=== PATIENT | female | born 1945 | race Caucasian/White ===

== ENCOUNTER → 2016-12-19 | Outpatient (CLI) | payer MEDICARE ==
[2016-12-19 10:19] LABS: Blood Urea Nitrogen 25 mg/dL (7-17); Non-African American GFR(MDRD) >60 (>60 ml/min/1.73 sqM)
--- NOTE | 2016-12-19 11:54 | CT ---
EXAMINATION TYPE: CT ChestAbdPelvis w con DATE OF EXAM: 12/19/2016 11:16 AM COMPARISON: CT cap December 17, 2015. Older CT and PET CT exams back to 2011. HISTORY: Chronic lymphocytic leukemia progress study. CT DLP: 1786 mGycm. Automated Exposure Control for Dose Reduction was Utilized. CONTRAST: CT scan of the thorax, abdomen and pelvis is performed with oral and with IV Contrast, patient inject ed with 100 ml mL of Omnipaque 300. FINDINGS: LUNGS: New triangular-shaped groundglass opacity posterior superior right lower lobe near axial image 26 is noted, consider focal infiltrate. No concerning parenchymal nodule or mass is present bilatera lly. There is no pleural effusion or pneumothorax seen. The tracheobronchial tree is patent. MEDIASTINUM: There are no greater than 1 cm hilar or mediastinal lymph nodes. No cardiomegaly or pe ricardial effusion is seen. Mild calcified plaque aortic arch extending into left subclavian artery is noted OTHER: No additional significant abnormality is seen. No suspicious axillary adenopathy is seen. LIVER/GB: Cholecystectomy clips are redemonstrated. PANCREAS: No significant abnormality is seen. SPLEEN: No significant abnormality is seen. ADRENALS: No significant abnormality is seen. KIDNEYS: No significant abnormality is seen. BOWEL: No significant abnormality is seen. GENITAL ORGANS: Uterus is surgically absent or markedly atrophic in appearance. LYMPH NODES: No greater than 1cm abdominal or pelvic lymph nodes are appreciated with particular atte ntion to the retroperitoneum. OSSEOUS STRUCTURES: There is metallic hardware from bilateral hip arthroplasties, this causes adjacen t streak artifact limiting evaluation of pelvic structures. This has similar appearance to prior exam . OTHER: Disc space narrowing with sclerosis and spurring as well as subchondral cystic change is redem onstrated L3-L4 level. There is additional multilevel spurring in the visualized thoracic spine. IMPRESSION: No worrisome mass or adenopathy is seen to suggest neoplastic recurrence.
== END | disposition home or self-care (01) ==
LOC: RADCTMAIN 09:29
PROVIDERS: ATTEND Internal Medicine Hematology & Oncology
DX: Z03.89 Encounter for observation for other suspected diseases and conditions ruled out (principal); C85.90 Non-Hodgkin lymphoma, unspecified, unspecified site
CPT/HCPCS: 82565; 84520; 71260; 74177; 36415; Q9967

== ENCOUNTER → 2017-02-14 | Outpatient (CLI) | payer MEDICARE ==
--- NOTE | 2017-02-15 09:27 | MM ---
Reason for exam: screening (asymptomatic). Last mammogram was performed 1 year and 4 months ago. History: Patient is postmenopausal, has history of other cancer at age 66, and has history of bilateral breast cancer. Family history of breast cancer in sister at age 40. Physical Findings: A clinical breast exam by your physician is recommended on an annual basis and results should be correlated with mammographic findings. MG Screening Mammo w CAD Bilateral CC and MLO view(s) were taken. Prior study comparison: October 02, 2015, bilateral MG screening mammo w CAD. March 26, 2014, bilateral MG screening mammo w CAD. There are scattered fibroglandular densities. Benign calcifications. There is no discrete abnormality. No significant changes when compared with prior studies. ASSESSMENT: Benign, BI-RAD 2 RECOMMENDATION: Routine screening mammogram of both breasts in 1 year.
== END | disposition home or self-care (01) ==
LOC: RADMAMWWP 16:49
PROVIDERS: ATTEND Family Medicine
DX: Z12.31 Encounter for screening mammogram for malignant neoplasm of breast (principal)

== ENCOUNTER → 2017-12-26 | Outpatient (CLI) | payer MEDICARE ==
--- NOTE | 2017-12-26 13:35 | CT ---
EXAMINATION TYPE: CT ChestAbdPelvis w con DATE OF EXAM: 12/26/2017 COMPARISON: 12/19/2016 HISTORY: Lymphoma, observe for mets CT DLP: 1823.4 mGycm CONTRAST: CT scan of the chest, abdomen and pelvis is performed with IV Contrast, patient injected with 100 mL of Isovue 300. CT Chest: LUNGS: There is increasing pleural-based ill-defined density superior segment right upper lobe latera lly measuring 1.3 cm currently and 1.1 cm previously. This finding is nonspecific and continued follo w-up is advised which could be performed in 4-6 months. The lungs are otherwise clear. No evidence fo r consolidation. No pleural effusion or CT evidence of interstitial lung disease. MEDIASTINUM: Thoracic aorta is of normal caliber. The heart is not enlarged. No evidence for media stinal mass or adenopathy. HILAR STRUCTURES: No evidence for mass. No hilar adenopathy is appreciated. OTHER: No significant abnormality. CONTRAST CT ABDOMEN AND PELVIS FINDINGS: LIVER/GB: Cholecystectomy clips are in place. No space occupying hepatic lesion. Biliary tree is of n ormal caliber. PANCREAS: No inflammation. No distinct mass. SPLEEN: No splenic enlargement. No lesion seen. ADRENALS: No nodule. No thickening. KIDNEYS/BLADDER: No hydronephrosis. No nephrolithiasis. No disctinct renal mass. BOWEL: Normal appendix. Normal bowel caliber. No inflammation. GENITAL ORGANS: No gross abnormality. LYMPH NODES: No greater than 1cm abdominal or pelvic lymph nodes are appreciated. AORTA: No significant abnormality. OSSEOUS STRUCTURES: Bilateral hip prostheses. Generative changes lumbar spine. OTHER: No significant additional abnormality is seen. IMPRESSION: 1. No evidence for adenopathy throughout the chest abdomen or pelvis. 2. Slight increase in size in the ill-defined pleural-based density superior segment right lower lobe may reflect an area of inflammatory change. Continued follow-up however is advised for 6 months.
== END | disposition home or self-care (01) ==
LOC: RADCTMAIN 11:30
PROVIDERS: ATTEND Internal Medicine Hematology & Oncology
DX: C85.98 Non-Hodgkin lymphoma, unspecified, lymph nodes of multiple sites (principal); R91.8 Other nonspecific abnormal finding of lung field
CPT/HCPCS: 82565; 84520; 71260; 74177; 36415; Q9967

== ENCOUNTER → 2018-04-05 | Outpatient (CLI) | payer MEDICARE ==
--- NOTE | 2018-04-10 12:43 | MM ---
Reason for exam: screening (asymptomatic). Last mammogram was performed 1 year and 2 months ago. History: Patient is postmenopausal, has history of other cancer at age 66, and has history of bilateral breast cancer. Family history of breast cancer in sister at age 40. Physical Findings: A clinical breast exam by your physician is recommended on an annual basis and results should be correlated with mammographic findings. MG Screening Mammo w CAD Bilateral CC, MLO, and XCCL view(s) were taken. Prior study comparison: February 14, 2017, bilateral MG screening mammo w CAD. October 02, 2015, bilateral MG screening mammo w CAD. There are scattered fibroglandular densities. There are benign appearing round calcifications bilaterally. There is no discrete abnormality. ASSESSMENT: Benign, BI-RAD 2 RECOMMENDATION: Routine screening mammogram of both breasts in 1 year.
== END | disposition home or self-care (01) ==
LOC: RADMAMWWP 10:47
PROVIDERS: ATTEND Family Medicine
DX: Z12.31 Encounter for screening mammogram for malignant neoplasm of breast (principal)
CPT/HCPCS: 77067

== ENCOUNTER → 2018-12-27 | Outpatient (CLI) | payer MEDICARE ==
[2018-12-27 11:31] LABS: Blood Urea Nitrogen 25 mg/dL (7-17)
--- NOTE | 2018-12-27 15:06 | CT ---
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 TECHNIQUE: Contiguous axial scanning of the chest, abdomen, and pelvis performed with IV Contrast, pa tient injected with 100 mL of Isovue 300. Delayed images through the kidneys were obtained. Coronal/s agittal reconstructions performed. CT DLP: 1860.9 mGycm Automated exposure control for dose reduction was used. FINDINGS: CHEST: Heart normal size without pericardial effusion. Coronary vessel calcifications are present. Aorta normal caliber with bovine configuration to the aortic arch. There is a new 2.1 cm lymph node in the lower left periaortic region, axial image 43. No intrathoraci c lymphadenopathy. Evaluation of the lungs shows mild biapical pleural-parenchymal scarring and minimal emphysematous ch fredy. There is a new 1.3 cm focus of groundglass in the right infrahilar region, axial image 34. Subpleural part solid groundglass density in the right lower lobe continues to increase in size with solid component measuring 1.4 cm versus approximately 8 mm, previously. The entire density measures a pproximately 2.1 cm versus 1.5 cm, previously. ABDOMEN: Soft tissue deposit left upper quadrant anterior subcutaneous adipose layer measuring 2.4 x 1.5 cm. No focal liver lesion is similar prominence to the bile ducts status post cholecystectomy. Portal kurt ous system is patent. Adrenal glands, kidneys, spleen, and pancreas appear within normal limits. Moderate prostatic calcifications abdominal aorta and iliac arteries. No new mesenteric or retroperitoneal lymphadenopathy. Oral contrast progressed to the ascending colon. Mild to moderate stool burden. Occasional left-sided colonic diverticulosis. No pericolonic inflammatory change. PELVIS: Most of the pelvis is obscured from the bilateral total hip arthroplasty artifacts. Uterus partially visualized. Bladder incompletely distended. No evident pelvic lymphadenopathy aligned for exam limita tions. BONES: Bilateral total hip arthroplasties. Degenerative disc disease and facet arthropathy throughout the phil mbar spine. IMPRESSION: 1. A FEW CONCERNING FINDINGS: 2. SOFT TISSUE DEPOSIT LEFT UPPER QUADRANT ANTERIOR SUBCUTANEOUS TISSUES MEASURING 2.4 X 1.5 CM. LYMP BLADIMIR NOT EXCLUDED. CONSIDER TARGETED ULTRASOUND AND TISSUE SAMPLING. 3. NEW 2.1 CM LYMPH NODE LOWER LEFT PARA-AORTIC REGION WITHIN THE THORAX IS SUSPICIOUS. 4. CONTINUOUSLY ENLARGING PART SOLID GROUNDGLASS IN THE RIGHT LOWER LOBE CURRENTLY MEASURING UP TO 2. 1 CM VERSUS 1.5 CM, PREVIOUSLY. LOW-GRADE ADENOCARCINOMA AND PULMONARY LYMPHOMA ARE IN THE DIFFERENTI AL. THERE IS ALSO A NEW 1.3 CM FOCUS OF GROUNDGLASS IN THE RIGHT INFRAHILAR REGION THAT COULD REPRESE NT THE SAME PROCESS.
== END | disposition home or self-care (01) ==
LOC: RADCTMAIN 10:48
PROVIDERS: ATTEND Internal Medicine Hematology & Oncology
DX: Z03.89 Encounter for observation for other suspected diseases and conditions ruled out (principal); C85.98 Non-Hodgkin lymphoma, unspecified, lymph nodes of multiple sites; R91.8 Other nonspecific abnormal finding of lung field
CPT/HCPCS: 82565; 84520; 71260; 74177; 36415; Q9967 ×2

== ENCOUNTER → 2019-01-05 | Outpatient (CLI) | payer MEDICARE ==
--- NOTE | 2019-01-07 12:52 | PE ---
Nuclear medicine PET/CT HISTORY: Lymphoma, subsequent Patient received 10.7 mCi F-18 FDG intravenously in delayed scanning was performed from the skull bas e to the mid thighs. Localization and attenuation correction CT scan was performed. Correlation to prior chest abdomen pelvis dated 12/27/2018, prior nuclear medicine PET/CT 07/28/2012 Neck and chest: No evident cervical, supraclavicular, axillary, hilar, or mediastinal adenopathy. The soft tissue mass posterior to the aorta is noted measuring 2 cm and shows associated hypermetabolic uptake, SUV is 6.9. The groundglass opacity seen in the right lower lobe posteriorly in the subpleura l location measures approximately 14 mm, there is associated hypermetabolic uptake, SUV is 5.2. There are coronary artery calcifications present. No pleural or pericardial effusion. Asymmetry in the sub mandibular location again noted, submandibular gland on the left not identified with certainty. ABDOMEN: Subcutaneous nodules in the left upper quadrant seen on prior CT measuring 2.5 cm with SUV 5 superiorly and the left lower quadrant measuring 15 mm with SUV 3.4 are noted. Spleen is not enlarge d. No retroperitoneal adenopathy. Patient is post cholecystectomy. No liver mass. No ascites. Osseous structures are remarkable for degenerative disc changes, facet arthropathy lower lumbar spine . Postop changes are noted to the hips, streak artifact could limit evaluation. Multilevel facet arth ropathy degenerative disc changes also noted in the cervical spine. IMPRESSION: Findings consistent with metastatic disease.
== END | disposition home or self-care (01) ==
LOC: RADPETMAIN 16:23
PROVIDERS: ATTEND Internal Medicine Hematology & Oncology
DX: C85.98 Non-Hodgkin lymphoma, unspecified, lymph nodes of multiple sites (principal)
CPT/HCPCS: 78815; A9552

== ENCOUNTER 2019-01-11 08:49 | Day surgery (SDC) | payer MEDICARE ==
[2019-01-11 09:24] VITALS: RESP 16; TEMP 97.7
[2019-01-11 10:17] VITALS: BP 152/78; PULSE 69
--- NOTE | 2019-01-11 11:16 | US ---
ULTRASOUND GUIDED CORE BIOPSY SUBCUTANEOUS MASS: CLINICAL HISTORY: Abnormal PET scan with subcutaneous mass FINDINGS: The procedure was explained to the patient. The risks, complications, benefits and alternatives were discussed and any questions were answered. Informed consent was obtained. Patient was placed supin e on the ultrasound table and prepped and draped in the usual sterile fashion. Utilizing a 18-gauge core biopsy needle, two passes were made into the anterior subcutaneous mass. Patient was stable throughout the procedure. Pathology is pending. All elements of maximal barrier technique were utilized. IMPRESSION: 1. Successful ultrasound guided core biopsy anterior subcutaneous mass.
== END 2019-01-11 10:30 | disposition home or self-care (01) ==
LOC: RADPROMAIN 08:49
PROVIDERS: ATTEND Internal Medicine Hematology & Oncology
DX: C82.03 Follicular lymphoma grade I, intra-abdominal lymph nodes (principal)
CPT/HCPCS: 49180; 76942; 88305; 88341; 88342

== ENCOUNTER → 2019-05-18 | Outpatient (CLI) | payer MEDICARE ==
--- NOTE | 2019-05-19 16:01 | PE ---
EXAMINATION TYPE: PET CT fusion skull to thigh DATE OF EXAM: 05/18/2019 COMPARISON: 12/27/[address] Prior PET/CT: 01/05/2019 HISTORY: Lymphoma TECHNIQUE: Following the intravenous administration of 12.806 mCi of F-18 FDG, whole body images are performed from the skull base to the midthigh. Images are reviewed on the computer in the coronal, axial, and sagittal planes. Reconstructed rotating images are created on independent workstation and reviewed on the computer. A localization and attenuation correction CT is performed in conjunction with the PET scan. DLP: 440.44 mGycm SCAN: Subsequent Blood glucose: 111 mg/dL Average Mediastinum SUV: 1.57 Average Liver SUV: 2.76 FINDINGS: NECK: No abnormal uptake THORAX: No abnormal uptake ABDOMEN: No abnormal uptake PELVIS: No abnormal uptake OSSEOUS STRUCTURES: No abnormal uptake LOCALIZATION CT: Ascending thoracic aorta at the level of main pulmonary artery is 3.3 cm. Main pulmo nary artery the bifurcation is 3.2 cm. Coronary artery calcifications present. Bilateral hip prosthes es Limited lower pelvis for evaluation. COMPARISON: Previous abnormal uptake is not evident on the current examination. No suspicious subcuta neous nodules are evident. IMPRESSION: 1. No suspicious findings of residual or recurrent metastatic disease.
== END | disposition home or self-care (01) ==
LOC: RADPETMAIN 08:27
PROVIDERS: ATTEND Internal Medicine Hematology & Oncology
DX: C85.88 Other specified types of non-Hodgkin lymphoma, lymph nodes of multiple sites (principal)
CPT/HCPCS: 78815; A9552

== ENCOUNTER → 2019-07-05 | Outpatient (CLI) | payer MEDICARE ==
--- NOTE | 2019-07-09 10:07 | MM ---
Reason for exam: screening (asymptomatic). Last mammogram was performed 1 year and 3 months ago. History: Patient is postmenopausal and has history of other cancer at age 66. Family history of breast cancer in sister at age 40. Physical Findings: A clinical breast exam by your physician is recommended on an annual basis and results should be correlated with mammographic findings. MG 3D Screening Mammo W/Cad Bilateral CC and MLO view(s) were taken. Prior study comparison: April 05, 2018, bilateral MG screening mammo w CAD. February 14, 2017, bilateral MG screening mammo w CAD. There are scattered fibroglandular densities. No significant changes when compared with prior studies. ASSESSMENT: Negative, BI-RAD 1 RECOMMENDATION: Routine screening mammogram of both breasts in 1 year.
== END | disposition home or self-care (01) ==
LOC: RADMAMWWP 14:06
PROVIDERS: ATTEND Family Medicine
DX: Z12.31 Encounter for screening mammogram for malignant neoplasm of breast (principal)
CPT/HCPCS: 77063; 77067

== ENCOUNTER → 2020-01-24 | Outpatient (CLI) | payer MEDICARE ==
--- NOTE | 2020-01-26 18:49 | PE ---
EXAMINATION TYPE: PET CT fusion skull to thigh DATE OF EXAM: 01/24/2020 COMPARISON: CT chest abdomen pelvis 12/27/2018 Prior PET/CT: 05/18/2019 HISTORY: Lymphoma TECHNIQUE: Following the intravenous administration of 10.09 mCi of F-18 FDG, whole body images are performed from the skull base to the midthigh. Images are reviewed on the computer in the coronal, a xial, and sagittal planes. Reconstructed rotating images are created on independent workstation and reviewed on the computer. A localization and attenuation correction CT is performed in conjunction with the PET scan. DLP: 439.73 mGycm SCAN: Subsequent Blood glucose: 98 mg/dL Average Mediastinum SUV: 1.58 Average Liver SUV: 2.42 FINDINGS: NECK: No abnormal uptake THORAX: No abnormal uptake ABDOMEN: Liver appears heterogenous limiting its evaluation. No obvious abdominal metastasis is evide nt PELVIS: No abnormal uptake. Lower pelvis is limited with bilateral hip prosthesis causing beam harden ing artifact. OSSEOUS STRUCTURES: There is some focal uptake within the left mid cervical spine facet, image 29 wit h an SUV value 2.47. This may be due to degenerative changes. Metastatic lesion is considered less li viktor. LOCALIZATION CT: Right submandibular gland appears prominent. This does not have elevated SUV values. Finding is stable from comparison. Note is made of coronary artery calcification. COMPARISON: Finding at the left cervical facets is an interval finding. No additional interval change s are evident. IMPRESSION: 1. No suspicious changes of recurrent or metastatic lymphoma. 2. There is some increase uptake within the facets on the left cervical spine which could be inflamma tory in degenerative in nature. Solitary metastasis this location would be unusual.
== END | disposition home or self-care (01) ==
LOC: RADPETMAIN 12:35
PROVIDERS: ATTEND Internal Medicine Hematology & Oncology
DX: C85.88 Other specified types of non-Hodgkin lymphoma, lymph nodes of multiple sites (principal)
CPT/HCPCS: 78815; A9552

== ENCOUNTER → 2020-10-01 | Outpatient (CLI) | payer MEDICARE ==
--- NOTE | 2020-10-02 11:42 | MM ---
Reason for exam: screening (asymptomatic). Last mammogram was performed 1 year and 3 months ago. History: Patient is postmenopausal and has history of other cancer at age 66. Family history of breast cancer in sister at age 40. Physical Findings: A clinical breast exam by your physician is recommended on an annual basis and results should be correlated with mammographic findings. MG 3D Screening Mammo W/Cad Bilateral CC and MLO view(s) were taken. Prior study comparison: July 05, 2019, bilateral MG 3d screening mammo w/cad. April 05, 2018, bilateral MG screening mammo w CAD. There are scattered fibroglandular densities. Stable benign calcifications. There is no discrete abnormality. No significant changes when compared with prior studies. ASSESSMENT: Benign, BI-RAD 2 RECOMMENDATION: Routine screening mammogram of both breasts in 1 year.
== END | disposition home or self-care (01) ==
LOC: RADMAMWWP 08:55
PROVIDERS: ATTEND Family Medicine
DX: Z12.31 Encounter for screening mammogram for malignant neoplasm of breast (principal)
CPT/HCPCS: 77063; 77067

== ENCOUNTER 2021-01-29 08:22 | Day surgery (SDC) | payer MEDICARE ==
[2021-01-28 09:48] VITALS: BMI 37.8
[~2021-01-29 08:22] MED LIST: LACTATED RINGERS 1,000 ML IV SCH
[2021-01-29 08:50] VITALS: TEMP 98.2
[2021-01-29 08:59] LABS: Glucose,Whole Blood 112 mg/dL (75-99)
[2021-01-29] MEDS ORDERED: PROPOFOL 10 MG/ML 20 ML VIAL IV ONE (09:20)
--- NOTE | 2021-01-29 09:35 | P.PCN ---
Date of Procedure: 01/29/21 Procedure(s) Performed: BRIEF HISTORY: Patient is a 75-year-old pleasant white femalescheduled for an elective colonoscopy as a part of screening for colon cancer and family history of colon cancer. Her sister was diagnosed with colon cancer at age 60 and the daughter at age 40. PROCEDURE PERFORMED: Colonoscopy. PREOPERATIVE DIAGNOSIS: Screening for colon cancer/family history of colon cancer IV sedation per Anesthesia. PROCEDURE: After informed consent was obtained, the patient, was brought into the endoscopy unit. IV sedation was administered by Anesthesia under continuous monitoring. Digital rectal examination was normal. Initially the Olympus CF-160 flexible video colonoscope was then inserted in the rectum, gradually advanced into the cecum without any difficulty. Careful examination was performed as the scope was gradually being withdrawn. Ileocecal valve and the appendiceal orifice were visualized and appeared normal. Prep was excellent. Mucosa of the cecum, ascending colon, transverse colon, descending colon, sigmoid colon, and rectum appeared normal. Retroflexion was performed in the rectum and no lesions were seen. The patient tolerated the procedure well. IMPRESSION: Normal-appearing colon from rectum to cecum with no evidence of colorectal neoplasia Small internal hemorrhoids. . RECOMMENDATIONS: Findings of this examination were discussed with the patient as well as a family. She was advised to have a repeat screening colonoscopy every 5 years because of the strong family history of colon cancer..
[2021-01-29 09:41] VITALS: RESP 16
[2021-01-29 10:14] VITALS: BP 113/68; PULSE 75
== END 2021-01-29 10:54 | disposition home or self-care (01) ==
LOC: ORWHC2ENDO 08:22
PROVIDERS: ATTEND Internal Medicine Gastroenterology
DX: Z12.11 Encounter for screening for malignant neoplasm of colon (principal); K64.8 Other hemorrhoids; K21.9 Gastro-esophageal reflux disease without esophagitis; I10 Essential (primary) hypertension; E11.9 Type 2 diabetes mellitus without complications; J44.9 Chronic obstructive pulmonary disease, unspecified; C91.10 Chronic lymphocytic leukemia of B-cell type not having achieved remission; Z80.0 Family history of malignant neoplasm of digestive organs; Z79.84 Long term (current) use of oral hypoglycemic drugs; Z79.83 Long term (current) use of bisphosphonates; Z79.899 Other long term (current) drug therapy
CPT/HCPCS: J2704; G0105; 45378

== ENCOUNTER → 2021-02-12 | Outpatient (CLI) | payer MEDICARE ==
--- NOTE | 2021-02-16 13:03 | PE ---
EXAMINATION TYPE: PET CT fusion skull to thigh DATE OF EXAM: 02/12/2021 COMPARISON: CT chest abdomen and pelvis 12/27/2018 Prior PET/CT: 01/24/2020 HISTORY: Lymphoma TECHNIQUE: Following the intravenous administration of 11.61 mCi of F-18 FDG, whole body images are performed from the skull base to the midthigh. Images are reviewed on the computer in the coronal, a xial, and sagittal planes. Reconstructed rotating images are created on independent workstation and reviewed on the computer. A localization and attenuation correction CT is performed in conjunction with the PET scan. DLP: 439.49 mGycm SCAN: Subsequent Scan Blood glucose: 120 mg/dL Average Mediastinum SUV: 1.82 Average Liver SUV: 2.6 FINDINGS: NECK: No abnormal uptake THORAX: There is a developing focus of radiotracer accumulation posterior to the aorta within the low er thoracic region. Image 107. This has an SUV value of 4.91 suspicious for neoplasm. ABDOMEN: No abnormal uptake PELVIS: No abnormal uptake OSSEOUS STRUCTURES: No abnormal uptake LOCALIZATION CT: Beam hardening artifact from the patient's bilateral hip prostheses are present. The re is a 2.1 x 2.3 cm nodule directly abutting the posterior distal aorta. IMPRESSION: 1. There is a 2 cm nodule adjacent to the descending thoracic aorta and paraspinal region with elevat ed metabolic activity suspicious for metastatic lesion.
== END | disposition home or self-care (01) ==
LOC: RADPETMAIN 08:42
PROVIDERS: ATTEND Internal Medicine Hematology & Oncology
DX: C85.98 Non-Hodgkin lymphoma, unspecified, lymph nodes of multiple sites (principal)
CPT/HCPCS: 78815; A9552

== ENCOUNTER → 2021-10-29 | Outpatient (CLI) | payer MEDICARE ==
--- NOTE | 2021-11-01 06:38 | PE ---
EXAMINATION TYPE: PET CT fusion skull to thigh DATE OF EXAM: 10/29/2021 COMPARISON: Prior PET/CT February 12, 2021 and older studies HISTORY: Lymphoma progress study. Originally diagnosed June 2011. TECHNIQUE: Following the intravenous administration of 9.69 mCi of F-18 FDG, whole body images are p erformed from the skull base to the midthigh. Images are reviewed on the computer in the coronal, ax ial, and sagittal planes. Reconstructed rotating images are created on independent workstation and r eviewed on the computer. A localization and attenuation correction CT is performed in conjunction w ith the PET scan. Blood glucose level equals 106. SCAN: Subsequent Scan FINDINGS: Mean SUV mediastinum: 1.35 Mean SUV liver: 2.87 SKULL BASE AND NECK: No new areas of abnormal hypermetabolic uptake. CHEST, MEDIASTINUM, AND HILAR REGION: Slightly larger 2.9 x 2.8 cm posterior left periaortic hypermet abolic mass or lymph node axial image 108, max SUV is 8.46 versus 4.91 prior study. More prominent 1.3 cm groundglass opacity or ground glass nodule posterior superior right lower lobe axial image 84 is ametabolic. This however was site of prior neoplasm older exams and is thus suspici ous and should be followed. New subcentimeter focus of hypermetabolic uptake posterior left sixth and seventh intercostal space a xial image 80, max SUV is 2.94. ABDOMEN AND PELVIS: No new areas of abnormal hypermetabolic uptake. Normal excretion. OSSEOUS STRUCTURES: No new areas of abnormal hypermetabolic uptake. OTHER CT: Coronary artery calcification is redemonstrated. Cholecystectomy clips are again seen. Mode rate calcified plaque of the aorta extends into branch vessels. Metallic artifact from bilateral hip arthroplasty causes streak artifact similar to prior studies limiting evaluation of pelvic structures . Multilevel Facet arthropathy throughout the lumbar spine. IMPRESSION: Neoplastic progression thought present as detailed above.
== END | disposition home or self-care (01) ==
LOC: RADPETMAIN 09:21
PROVIDERS: ATTEND Internal Medicine Hematology & Oncology
DX: C85.88 Other specified types of non-Hodgkin lymphoma, lymph nodes of multiple sites (principal); I25.10 Atherosclerotic heart disease of native coronary artery without angina pectoris; R91.8 Other nonspecific abnormal finding of lung field; M47.816 Spondylosis without myelopathy or radiculopathy, lumbar region; Z90.49 Acquired absence of other specified parts of digestive tract
CPT/HCPCS: 78815; A9552

== ENCOUNTER → 2021-12-31 | Outpatient (CLI) | payer MEDICARE ==
[~2021-12-31] MED LIST changes: +BEBTELOVIMAB (EUA) 175 MG/2 ML VIAL IV NR; -LACTATED RINGERS 1,000 ML IV SCH; +SODIUM CHLORIDE 0.9% 500 ML 500 ML in EMPTY BAG 1 BAG IV PRN
[2021-12-31 14:48] VITALS: PULSE 69; RESP 16; TEMP 98.2
[2021-12-31 15:28] VITALS: BP 124/76
== END ==
LOC: PROCWHC3 14:01
PROVIDERS: ATTEND Physician Assistant
DX: U07.1 COVID-19 (principal); E66.9 Obesity, unspecified; Z68.38 Body mass index [BMI] 38.0-38.9, adult
CPT/HCPCS: 96374; Q0222; M0222

== ENCOUNTER → 2022-02-24 | Outpatient (CLI) | payer MEDICARE ==
--- NOTE | 2022-02-25 18:26 | MM ---
Reason for Exam: Screening (asymptomatic). Last mammogram was performed 1 year(s) and 5 month(s) ago. Patient History: Menarche at age 15. First Full-Term at age 22. Postmenopausal. Other cancer, age 66. Unspecified Hormone for 5 years from age 50 until age 55. Sister had breast cancer, age 40. Risk Values: Sara 5 year model risk: 3.1%. NCI Lifetime model risk: 6.2%. Prior Study Comparison: 04/05/2018 Bilateral Screening Mammogram, [facility]. 07/05/2019 Bilateral Screening Mammogram, [facility]. 10/01/2020 Bilateral Screening Mammogram, [facility]. Tissue Density: There are scattered fibroglandular densities. Findings: Analyzed By CAD. Asymmetric density anterior inferior left MLO view does not persist on 3-D images. A few scattered benign oil cyst calcifications. No significant change from prior exams. Overall Assessment: Benign, BI-RAD 2 Management: Screening Mammogram of both breasts in 1 year. 1. Patient should continue monthly self breast exams. 2. A clinical breast exam by your physician is recommended on an annual basis. 3. This exam should not preclude additional follow-up of suspicious palpable abnormalities. Electronically signed and approved by: Jimmy Barragan M.D. Radiologist
== END | disposition home or self-care (01) ==
LOC: RADMAMWWP 16:07
PROVIDERS: ATTEND Family Medicine
DX: Z12.31 Encounter for screening mammogram for malignant neoplasm of breast (principal); Z78.0 Asymptomatic menopausal state; Z80.3 Family history of malignant neoplasm of breast
CPT/HCPCS: 77063; 77067

== ENCOUNTER → 2022-02-25 | Outpatient (CLI) | payer MEDICARE ==
--- NOTE | 2022-02-28 06:42 | PE ---
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 Completed [facility] erapy 2019 per patient. TECHNIQUE: Following the intravenous administration of 13.4 mCi of F-18 FDG, whole body images are p erformed from the skull base to the midthigh. Images are reviewed on the computer in the coronal, ax ial, and sagittal planes. Reconstructed rotating images are created on independent workstation and r eviewed on the computer. A localization and attenuation correction CT is performed in conjunction w ith the PET scan. Blood glucose level equals 123 SCAN: Subsequent Scan FINDINGS: Mean SUV mediastinum: 0.95 Mean SUV liver: 2.3 SKULL BASE AND NECK: Mild symmetric uptake inferior upper thoracic muscles presumed inflammatory in etiology. No new hypermetabolic lymph nodes. CHEST, MEDIASTINUM, AND HILAR REGION: Fairly stable in size left periaortic mass measuring 3.3 x 3.2 cm axial image 111, max SUV is 6.58 versus 8.46 on prior study. Fairly stable 1.3 cm groundglass opacity or ground glass nodule posterior superior right lower lobe a xial image 85 remains ametabolic. This however was site of prior neoplasm on older exams and continue d follow-up advised. No new areas of abnormal hypermetabolic uptake. ABDOMEN AND PELVIS: Mild nonspecific hypermetabolic uptake in the transverse and left colon. No new a reas of abnormal hypermetabolic uptake. Normal excretion redemonstrated. OSSEOUS STRUCTURES: No new areas of abnormal hypermetabolic uptake. OTHER CT: Coronary artery calcification is redemonstrated. Cholecystectomy clips are again seen. Mode rate calcified plaque of the aorta extends into branch vessels. Metallic artifact from bilateral hip arthroplasty causes streak artifact similar to prior studies limiting evaluation of pelvic structures . Multilevel Facet arthropathy throughout the lumbar spine. IMPRESSION: Partial positive treatment response with improved max SUV if patient undergoing active tr eatment otherwise no active neoplastic progression.
== END | disposition home or self-care (01) ==
LOC: RADPETMAIN 09:24
PROVIDERS: ATTEND Internal Medicine Hematology & Oncology
DX: C85.98 Non-Hodgkin lymphoma, unspecified, lymph nodes of multiple sites (principal)
CPT/HCPCS: 78815; A9552

== ENCOUNTER → 2023-06-16 | Outpatient (CLI) | payer MEDICARE ==
--- NOTE | 2023-06-21 13:15 | PE ---
EXAMINATION TYPE: PET CT fusion skull to thigh DATE OF EXAM: 06/16/2023 COMPARISON: No recent prior CT Prior PET/CT: 03/11/2023 HISTORY: Lymphoma TECHNIQUE: Following the intravenous administration of 10.5 mCi of F-18 FDG, whole body images are p erformed from the skull base to the midthigh. Images are reviewed on the computer in the coronal, ax ial, and sagittal planes. Reconstructed rotating images are created on independent workstation and r eviewed on the computer. A localization and attenuation correction CT is performed in conjunction w ith the PET scan. DLP: 925.58 mGycm SCAN: Subsequent Blood glucose: 130 mg/dL Average Mediastinum SUV: 2.98 Average Liver SUV: 3.63 FINDINGS: NECK: No abnormal uptake THORAX: There is increased uptake within the soft tissue mass adjacent to the descending thoracic aor ta medial left lung base. Example image 118, SUV 11.12. Previous uptake along the posterior medial chest wall, example image 94, SUV 4.12. is appears smaller than the comparison study although the SUV value has increased from 3.84. ABDOMEN: Subcutaneous uptake anterior left abdomen, image 146, SUV 4.38 PELVIS: No abnormal uptake OSSEOUS STRUCTURES: No abnormal uptake LOCALIZATION CT: Coronary artery calcification is noted. COMPARISON: Increase in SUV values within the chest IMPRESSION: 1. Increasing uptake within chest left lung masses compatible with neoplasm. 2. Uptake within a soft tissue density anterior subcutaneous left upper quadrant abdomen can be panchito tible with a neoplastic process.
== END | disposition home or self-care (01) ==
LOC: RADPETMAIN 12:14
PROVIDERS: ATTEND Internal Medicine Hematology & Oncology
DX: C85.98 Non-Hodgkin lymphoma, unspecified, lymph nodes of multiple sites (principal); R91.8 Other nonspecific abnormal finding of lung field
CPT/HCPCS: 78815; A9552

== ENCOUNTER → 2023-09-07 | Outpatient (CLI) | payer MEDICARE ==
--- NOTE | 2023-09-09 11:27 | PE ---
EXAMINATION TYPE: PET CT fusion skull to thigh DATE OF EXAM: 09/07/2023 COMPARISON: No recent pertinent CT Prior PET/CT: 06/16/2023 HISTORY: Lymphoma TECHNIQUE: Following the intravenous administration of 10.87 mCi of F-18 FDG, whole body images are performed from the skull base to the midthigh. Images are reviewed on the computer in the coronal, a xial, and sagittal planes. Reconstructed rotating images are created on independent workstation and reviewed on the computer. A localization and attenuation correction CT is performed in conjunction with the PET scan. DLP: 878.54 mGycm SCAN: Subsequently Blood glucose: 117 mg/dL Average Mediastinum SUV: 2.43 Average Liver SUV: 3.11 FINDINGS: NECK: Prominent fat and/or muscular uptake in the posterior bilateral neck is present. Suspicious fo bandar uptake is not identified. THORAX: There is abnormal uptake posterior to the descending thoracic aorta within the mid inferior t horax. This has an SUV value of 7.86. ABDOMEN: There is some mild persistent uptake in the intermediate range 1.56 SUV on the left anterior subcutaneous tissue density. Image 136. This was present previously has diminished estimated from co mparison. PELVIS: No abnormal uptake OSSEOUS STRUCTURES: No abnormal uptake LOCALIZATION CT: No suspicious adenopathy is evident. Soft tissue density posterior to the aorta is e vident on the localization CT COMPARISON: Soft tissue density was present previously posterior to the descending thoracic aorta wit h a previous SUV value of 13. This is currently slightly diminished from comparison. IMPRESSION: 1. Persistent soft tissue density posterior to the aorta with abnormal uptake. SUV value has diminish ed from the prior study. 2. Diminishing SUV currently in the intermediate range within the subcutaneous nodule anterior left a bdomen.
== END | disposition home or self-care (01) ==
LOC: RADPETMAIN 08:46
PROVIDERS: ATTEND Internal Medicine Hematology & Oncology
DX: C85.98 Non-Hodgkin lymphoma, unspecified, lymph nodes of multiple sites (principal)
CPT/HCPCS: 78815; A9552

== ENCOUNTER → 2023-12-21 | Outpatient (CLI) | payer MEDICARE ==
--- NOTE | 2023-12-23 11:43 | PE ---
EXAMINATION TYPE: PET CT fusion skull to thigh DATE OF EXAM: 12/21/2023 COMPARISON: No recent pertinent CT Prior PET/CT: 09/07/2023 HISTORY: Lymphoma TECHNIQUE: Following the intravenous administration of 12.2 mCi of F-18 FDG, whole body images are p erformed from the skull base to the midthigh. Images are reviewed on the computer in the coronal, ax ial, and sagittal planes. Reconstructed rotating images are created on independent workstation and r eviewed on the computer. A localization and attenuation correction CT is performed in conjunction w ith the PET scan. DLP: 866.92 mGycm SCAN: Subsequent Blood glucose: 105 mg/dL Average Mediastinum SUV: 2.76 Average Liver SUV: 3.56 FINDINGS: NECK: No abnormal uptake THORAX: There is intense uptake in the mass adjacent to the descending thoracic aorta posterior media l left lung. This has an SUV of 9.2. Previous SUV 8.15. No mediastinal uptake is evident. ABDOMEN: No abnormal intra-abdominal uptake. There is intermediate uptake within the subcutaneous nod ule left anterior abdomen, image 138, SUV 2.52. This is below background. PELVIS: No abnormal uptake OSSEOUS STRUCTURES: No abnormal uptake LOCALIZATION CT: Mass correlates with the uptake on the PET scan in the posterior medial left lung. N o additional suspicious CT changes COMPARISON: The findings appear stable over the interval. IMPRESSION: 1. Stable appearance periaortic posterior medial left lung mass. 2. No new nodules evident
== END | disposition home or self-care (01) ==
LOC: RADPETMAIN 14:47
PROVIDERS: ATTEND Internal Medicine Hematology & Oncology
DX: C85.99 Non-Hodgkin lymphoma, unspecified, extranodal and solid organ sites (principal); R91.8 Other nonspecific abnormal finding of lung field
CPT/HCPCS: 78815; A9552

== ENCOUNTER → 2024-04-18 | Outpatient (CLI) | payer MEDICARE ==
--- NOTE | 2024-04-24 16:46 | PE ---
EXAMINATION TYPE: PET CT fusion skull to thigh DATE OF EXAM: 04/18/2024 COMPARISON: None Prior PET/CT: 12/21/2023 HISTORY: Lymphoma TECHNIQUE: Following the intravenous administration of 9.32 mCi of F-18 FDG, whole body images are p erformed from the skull base to the midthigh. Images are reviewed on the computer in the coronal, ax ial, and sagittal planes. Reconstructed rotating images are created on independent workstation and r eviewed on the computer. A localization and attenuation correction CT is performed in conjunction w ith the PET scan. DLP: 873.70 mGycm SCAN: Subsequent Blood glucose: 128 mg/dL Average Mediastinum SUV: 2,81 Average Liver SUV: 3.82 FINDINGS: NECK: No suspicious uptake THORAX: Abnormal uptake within the periaortic soft tissue mass near the diaphragm. SUV value 11.33. P revious SUV 9.2. ABDOMEN: No suspicious uptake PELVIS: No suspicious uptake OSSEOUS STRUCTURES: No suspicious uptake LOCALIZATION CT: Para-aortic soft tissue density remains present, currently measuring 3.9 cm transver se, previous measurement 3.3 cm. Diverticulosis without acute diverticulitis present. COMPARISON: Increase in SUV within the soft tissues density within the chest IMPRESSION: 1. Increase in SUV value within the previous soft tissue density within the periaortic medial left lo wer chest.
== END | disposition home or self-care (01) ==
LOC: RADPETMAIN 10:49
PROVIDERS: ATTEND Internal Medicine Hematology & Oncology
DX: C85.98 Non-Hodgkin lymphoma, unspecified, lymph nodes of multiple sites (principal); I10 Essential (primary) hypertension; E78.5 Hyperlipidemia, unspecified; M15.0 Primary generalized (osteo)arthritis; J98.4 Other disorders of lung
CPT/HCPCS: 78815; A9552

== ENCOUNTER → 2024-10-31 | Outpatient (CLI) | payer MEDICARE ==
--- NOTE | 2024-11-02 16:16 | PE ---
EXAMINATION TYPE: PET CT fusion skull to thigh DATE OF EXAM: 10/31/2024 CLINICAL INDICATION:Female, 79 years old with history of C85.98 LYMPHOMA; TECHNIQUE: Following the intravenous administration of 10.05 mCi of F-18 FDG, whole body images are performed from the skull base to the midthigh. Images are reviewed on the computer in the coronal, axial, and sagittal planes. Reconstructed rotating images are created on independent workstation and reviewed on the computer. A non-contrast CT is performed in conjunction with the PET scan. Glucose level 126 mg/dL CT DLP: 863.75 mGycm, Automated exposure control for dose reduction was used. COMPARISON: CT None, PET/CT 04/18/2024, 12/21/2023, 09/07/2023, 06/16/2023, 03/11/2023, 02/25/2022, MRI: Non e FINDINGS: Mediastinal SUV mean is 2.4. Hepatic parenchyma SUV mean is 3.3. SKULL BASE AND NECK: No suspicious radiotracer activity. CHEST, MEDIASTINUM, AND HILAR REGION: Redemonstration of left paravertebral/periaortic 4.5 x 4.2 cm mass previously measured 3.9 x 3.7 cm. Demonstrates a maximum SUV of 13.9, previously 18.3. Patchy peripheral opacities within the posterior right upper lung with a maximum SUV of 2.7. ABDOMEN AND PELVIS: Marginal increase in size of nodular density within the left anterior abdominal wall subcutaneous tis sues measuring up to 2 cm. Demonstrates a maximum SUV of 9.3. Previously 6.9. MUSCULOSKELETAL STRUCTURES: Diffuse muscular uptake likely related to exercise, diabetes or medication. OTHER CT: Bilateral carotid bulb calcifications. Atherosclerotic calcification of the aorta and its b ranches. Mild to moderate coronary arterial calcifications. Aortic valvular calcifications. Calcifica tions within the mitral annulus. Post surgical changes of both hips. Elevation of the right hemidiaph ragm. Gallbladder is surgically absent. Multilevel degenerative changes of the spine. IMPRESSION: 1. Mildly increased size of left paravertebral/periaortic 4.5 cm mass with mildly decreased FDG activ ity from prior PET/CT. FDG activity might be artificially low due to diffuse muscular uptake. 2. Marginal increase in size of FDG avid left anterior abdominal subcutaneous soft tissue 2 cm nodule . There is mild increased FDG activity from prior PET/CT. 3. Posterior right upper lung patchy peripheral opacities without FDG activity above background sugge sting atelectasis versus an infectious/inflammatory bronchiolitis. [facility], , 11/02/2024 4:13 PM
== END | disposition home or self-care (01) ==
LOC: RADPETMAIN 10:28
PROVIDERS: ATTEND Internal Medicine Hematology & Oncology
DX: C85.98 Non-Hodgkin lymphoma, unspecified, lymph nodes of multiple sites (principal); I35.8 Other nonrheumatic aortic valve disorders; M79.89 Other specified soft tissue disorders; M48.8X9 Other specified spondylopathies, site unspecified; R91.8 Other nonspecific abnormal finding of lung field
CPT/HCPCS: 78815; A9552